=== PATIENT | female | born 1995 | race Caucasian/White ===

== ENCOUNTER 2018-09-09 15:25 | Inpatient (IN) | payer OTHER ==
[~2018-09-09] VITALS: Ht 157.5 cm; Wt 71.2 kg
[2018-09-09] MEDS ORDERED: RINGERS SOLUTION,LACTATED 1,000 ML IV PRN (19:37)
[2018-09-09 19:41] VITALS: BP 122/66
[2018-09-09] MEDS ORDERED: CITRIC ACID/SODIUM CITRATE 30 ML SOLUTION UDCUP PO PRN (19:45)
[2018-09-09] MEDS ORDERED: METOCLOPRAMIDE HCL 5 MG/ML 2 ML VIAL IVP PRN (19:45)
[2018-09-09] MEDS ORDERED: FentaNYL CITRATE-PF 100 MCG/2 ML VIAL IVP PRN (19:45)
[2018-09-09] MEDS ORDERED: OXYGEN THERAPY IH SCH (20:00)
[2018-09-09 20:19] LABS: BASOPHILS % (AUTO) 0.2 % (0.0-2.0); EOSINOPHILS % (AUTO) 1.5 % (1.0-6.0); HEMATOCRIT 36.5 % (36-46); HEMOGLOBIN 12.3 g/dL (12.0-16.0); LYMPHOCYTES # (AUTO) 2.1 K/uL (1.0-4.8); MEAN CORPUSCULAR HEMOGLOBIN 30.7 pg (26.0-34.0); MEAN CORPUSCULAR HGB CONC 33.8 G/dL (31.0-37.0); MEAN CORPUSCULAR VOLUME 91 fL (80-100); MONOCYTES # (AUTO) 0.5 K/uL (0.1-1.0); MONOCYTES % (AUTO) 6.7 % (2.0-9.0); NEUTROPHILS # (AUTO) 5.4 K/uL (1.8-7.7); NEUTROPHILS % (AUTO) 65.6 % (40.0-70.0); PLATELET COUNT (AUTO)-OB 147 K/uL (150-450); RED BLOOD CELL COUNT(AUTO) 4.02 MIL/uL (4.00-5.20); RED CELL DISTRIBUTION WIDTH 13.7 % (11.5-14.5)
[2018-09-09] MEDS ORDERED: NIFEdipine 10 MG CAPSULE PO ONE (21:15)
[2018-09-09] MEDS: RINGERS SOLUTION,LACTATED 1,000 ML IV SCH ×2 (21:18→23:24)
[2018-09-09] MEDS ORDERED: FERR-89 PO (22:24)
[2018-09-09] MEDS ORDERED: PNV1TABL54 PO (22:24)
[2018-09-10] MEDS: RINGERS SOLUTION,LACTATED 1,000 ML IV SCH (04:40)
[2018-09-10] MEDS ORDERED: OxyCODONE HCL/ACETAMINOPHEN 5-325 MG TABLET PO PRN (07:15)
[2018-09-10] MEDS ORDERED: DiphenhydrAMINE HCL 50 MG/ML VIAL IVP PRN (07:15)
[2018-09-10] MEDS ORDERED: ONDANSETRON HCL 4 MG/2 ML VIAL IVP PRN (07:15)
[2018-09-10] MEDS ORDERED: NALOXONE HCL 0.4 MG/ML VIAL IVP PRN (07:15)
[2018-09-10] MEDS ORDERED: MIDAZOLAM HCL 2 MG/2 ML VIAL ONE (07:53)
[2018-09-10] MEDS ORDERED: MORPHINE SULFATE/PF 1 MG/ML 10 ML AMP ONE (07:53)
[2018-09-10] MEDS ORDERED: BUPIVACAINE HCL/DEX-WATER/PF 0.75% 2 ML AMP ONE (07:53)
[2018-09-10] MEDS ORDERED: ONDANSETRON HCL 4 MG/2 ML VIAL ONE (07:54)
[2018-09-10] MEDS ORDERED: DEXAMETHASONE SOD PHOS 4 MG/ML VIAL ONE (07:54)
[2018-09-10] MEDS ORDERED: OXYGEN THERAPY IH SCH ×2 (08:00)
[2018-09-10] MEDS ORDERED: FentaNYL CITRATE-PF 100 MCG/2 ML VIAL ONE (08:00)
[2018-09-10] MEDS ORDERED: METHYLERGONOVINE MALEATE 0.2 MG/ML VIAL ONE (08:45)
[2018-09-10] MEDS ORDERED: ACETAMINOPHEN/CODEINE 300-30 MG TABLET PO PRN (10:00)
[2018-09-10] MEDS ORDERED: LANOLIN 7 GM OINTMENT TP PRN (10:00)
[2018-09-10] MEDS: DEXTROSE 5%-0.45% SODIUM CHL 1,000 ML IV SCH ×3 (11:45→20:19)
[2018-09-10] MEDS ORDERED: KETOROLAC TROMETHAMINE 60 MG/2 ML VIAL IM ONE (12:00)
[2018-09-10] MEDS ORDERED: EPHEDrine SULFATE 50 MG/ML VIAL IM ONE (12:00)
[2018-09-10] MEDS ORDERED: 0.9% SODIUM CHLORIDE 10 ML VIAL IVP ONE (12:00)
[2018-09-10] MEDS ORDERED: OXYTOCIN 10 UNITS/ML VIAL IM ONE (12:00)
[2018-09-10] MEDS ORDERED: PNEUMOCOCCAL VACCINE POLYVALENT 0.5 ML VIAL [PPSV23] IM ONE (13:30)
[2018-09-10] MEDS: KETOROLAC TROMETHAMINE 30 MG/ML VIAL IVP SCH ×2 (17:08→23:25)
[2018-09-10] MEDS: MAGNESIUM HYDROXIDE SUSPENSION 30 ML UDCUP PO SCH (21:00)
[2018-09-11] MEDS: DEXTROSE 5%-0.45% SODIUM CHL 1,000 ML IV SCH (01:20)
[2018-09-11] MEDS: KETOROLAC TROMETHAMINE 30 MG/ML VIAL IVP SCH (06:00)
[2018-09-11] MEDS: IBUPROFEN 800 MG TABLET PO SCH ×2 (16:39→22:45)
[2018-09-11] MEDS: MAGNESIUM HYDROXIDE SUSPENSION 30 ML UDCUP PO SCH ×2 (16:41→21:04)
[2018-09-12] MEDS: IBUPROFEN 800 MG TABLET PO SCH ×4 (04:57→23:45)
[2018-09-12] MEDS: MAGNESIUM HYDROXIDE SUSPENSION 30 ML UDCUP PO SCH (08:52)
[2018-09-12] MEDS: ACETAMINOPHEN/CODEINE 300-30 MG TABLET PO PRN ×2 (10:04→16:44)
[2018-09-13] MEDS: IBUPROFEN 800 MG TABLET PO SCH (06:14)
[2018-09-13] MEDS ORDERED: IBUP-2071 PO (11:10)
== END 2018-09-13 11:50 | disposition home or self-care (01) | DRG 788 ==
LOC: 4S 15:25 → OBSVTOIN 15:25 → 4S 09-10 17:30
PROVIDERS: ADMIT Obstetrics & Gynecology; ATTEND Obstetrics & Gynecology
PROC: 10D00Z1 Extraction of Products of Conception, Low, Open Approach (ICD-10-PCS; principal; 2018-09-10)
DX: O34.211 Maternal care for low transverse scar from previous cesarean delivery (principal); Z3A.39 39 weeks gestation of pregnancy; Z37.0 Single live birth
CPT/HCPCS: 86850; 86900; 86901; 87081; J0690; J1100; J1885; J2210; J2250; J2405; J2590; J2765; J3010; J3490; J7120